=== PATIENT | female | born 1970 | race Caucasian/White ===

== ENCOUNTER 2019-04-16 07:08 | Emergency (ER) | payer BC ==
[~2019-04-16] VITALS: Ht 162.6 cm; Wt 75.3 kg
[2019-04-16 07:16] VITALS: BP 116/24; Ht 162.6 cm; Wt 75.3 kg
[2019-04-16 08:05] LABS: CALCIUM 8.6 mg/dL (8.5-10.1); CARBON DIOXIDE 28.8 mmol/L (21-32); CHLORIDE SERUM 101 mmol/L (98-107); CREATININE SERUM 0.8 mg/dL (0.6-1.0); GFR1 > 60 mL/min; GLUCOSE SERUM 106 mg/dL (74-106); POTASSIUM SERUM 4.1 mmol/L (3.5-5.1); SODIUM SERUM 140 mmol/L (136-145)
[2019-04-16 08:14] LABS: BASOPHIL % 0.5 % (0-2); RED CELL DISTRIBUTION WIDTH 14.4 % (11.5-14.5)
[2019-04-16 08:15] LABS: ALBUMIN 3.6 g/dL (3.4-5.0); ALKALINE PHOSPHATASE 216 U/L (46-116); AST/SGOT 670 U/L (15-37); BILIRUBIN TOTAL 0.83 mg/dL (0.20-1.00); PLATELET COUNT 413 x10^3mcL (130-400)
[2019-04-16 08:16] LABS: ALT/SGPT 1041 U/L (14-59)
== END 2019-04-16 08:56 | disposition home or self-care (01) ==
LOC: ED 07:08
PROVIDERS: Emergency Medicine
DX: H81.10 Benign paroxysmal vertigo, unspecified ear (principal); R20.2 Paresthesia of skin; R00.2 Palpitations
CPT/HCPCS: 36415; J8597

== ENCOUNTER 2019-09-29 23:18 | Emergency (ER) | payer BC ==
[~2019-09-29] VITALS: Ht 172.7 cm; Wt 35.0 kg
[2019-09-29 23:39] VITALS: Ht 172.7 cm; Wt 35.0 kg
[2019-09-30 00:37] LABS: BASOPHIL % 0.3 % (0-2); PLATELET COUNT 440 x10^3mcL (130-400); RED CELL DISTRIBUTION WIDTH 13.7 % (11.5-14.5)
[2019-09-30 00:44] LABS: CALCIUM 8.7 mg/dL (8.5-10.1); CHLORIDE SERUM 104 mmol/L (98-107); CREATININE SERUM 0.8 mg/dL (0.6-1.0); GFR1 > 60 mL/min; GLUCOSE SERUM 112 mg/dL (74-106); POTASSIUM SERUM 4.2 mmol/L (3.5-5.1); SODIUM SERUM 142 mmol/L (136-145)
[2019-09-30 00:48] LABS: ALBUMIN 3.9 g/dL (3.4-5.0); ALKALINE PHOSPHATASE 84 U/L (46-116); ALT/SGPT 119 U/L (14-59); AMYLASE 51 U/L (25-115); AST/SGOT 205 U/L (15-37); BILIRUBIN TOTAL 0.6 mg/dL (0.20-1.00); LIPASE 185 IU/L (73-393); TOTAL PROTEIN, SERUM 8.1 g/dL (6.4-8.2)
[2019-09-30 05:05] VITALS: BP 105/56
== END 2019-09-30 05:05 | disposition home or self-care (01) ==
LOC: ED 23:18
PROVIDERS: Emergency Medicine
DX: K80.50 Calculus of bile duct without cholangitis or cholecystitis without obstruction (principal); R11.0 Nausea
CPT/HCPCS: Q0092; Q0162